=== PATIENT | male | born 1960 | race Caucasian/White ===

== ENCOUNTER 2023-03-28 07:48 | Emergency (ER) | payer BC ==
[2023-03-28] MEDS ORDERED: hydrALAZINE INJECTION 20 MG/ML VIAL IV ONE (08:15)
[2023-03-28 08:22] LABS: BASOPHILS % (AUTO) 1 % (0-10); EOSINOPHILS # (AUTO) 0.1 10^3/uL (0.0-0.3); EOSINOPHILS % (AUTO) 2 % (0-10); HEMATOCRIT 49 % (40-54); HEMOGLOBIN 16.3 g/dL (13.3-17.7); LYMPHOCYTES # (AUTO) 1.1 10^3/uL (1.0-4.0); LYMPHOCYTES % (AUTO) 21 % (12-44); MEAN CORPUSCULAR HEMOGLOBIN 31 pg (25-34); MEAN CORPUSCULAR HGB CONC 33 g/dL (32-36); MEAN CORPUSCULAR VOLUME 94 fL (80-99); MONOCYTES # (AUTO) 0.5 10^3/uL (0.0-1.0); MONOCYTES % (AUTO) 9 % (0-12); NEUTROPHILS # (AUTO) 3.3 10^3/uL (1.8-7.8); NEUTROPHILS % (AUTO) 66 % (42-75); PLATELET COUNT 202 10^3/uL (130-400)
--- NOTE | 2023-03-28 08:24 | ED Headache ---
General Chief Complaint: Dizziness/Syncope Stated Complaint: HIGH BLOOD PRESSURE | DIZZINESS Nursing Triage Note: PT AMB TO RM 5 PT CO OF DIZZINESS, HTN, N\\V STARTED ON FRIDAY. Source: patient Exam Limitations: no limitations History of Present Illness Date Seen by Provider: Mar 28, 2023 Time Seen by Provider: 08:12 Initial Comments Very pleasant 62-year-old male presents to the emergency department with symptoms of vertigo that started upon waking morning (yesterday ). He is traveling from out of town for business although this is his hometown. Stat es he woke up morning and the room was spinning he was very dizzy after he got up from bed he had an episode of vomiting that he states was triggered by the dizziness he was not nauseated. States he then stated he would not be able to make the conference that day and went back to bed. He states he started to feel better throughout the day but still had a dull headache and some mild dizziness he describes his vision jumping when he looks to one side it does not make dizziness any worse. He states he is hypertensive has been hypertensive for many many years did have 1 other episode similar to today but that was many years ago as well at that time had his medication adjusted and has not had any problems since. No cardiac disease no history of stroke. He cannot recall the name of his antihypertensive but he states he did take it today. He states he has a mild dull headache he does exhibit nystagmus when looking to the left no dizziness or nausea. He is hypertensive initially 212/129 it has come down to 195/128 without intervention heart rate 75 normal sinus rhythm. He is afebrile no chest pain no shortness of breath Timing/Duration: 24 hours, waxing and waning Severity/Quality: moderate Prior Headaches/Recent Trauma: no recent headache/trauma Associated Symptoms: nausea/vomiting, vision changes, other (Dizziness) Allergies and Home Medications Allergies Coded Allergies: No Known Drug Allergies (Unverified , 03/28/23) Patient Home Medication List Home Medication List Reviewed: Yes Review of Systems Review of Systems Constitutional: see HPI, dizziness Eyes: Blurred Vision, Vision Changes Ears, Nose, Mouth, Throat: no symptoms reported Respiratory: no symptoms reported Cardiovascular: no symptoms reported Gastrointestinal: vomiting Genitourinary: no symptoms reported Musculoskeletal: no symptoms reported Skin: no symptoms reported Psychiatric/Neurological: Headache All Other Systems Reviewed Negative Unless Noted: Yes Past Rvgezpb-Mgytdt-Bnyzah Hx Patient Social History Substance use?: No Alcohol Use?: Yes Alcohol type: Beer Alcohol Frequency: Once in a while Immunizations Up To Date Influenza Vaccine Up-to-Date: Yes; Up-to-Date Past Medical History Surgery/Hospitalization HX: HTN, SHOULDER R, ARHTROSCOPY KNEE. Physical Exam Vital Signs Vital Signs - First Documented 03/28/23 07:56 Temp 36.0 Pulse 75 Resp 16 B/P (MAP) 212/129 (156) Pulse Ox 96 Capillary Refill : Less Than 3 Seconds Height, Weight, BMI Height: '" Weight: lbs. oz. kg; BMI Method: General Appearance: WD/WN, no apparent distress HEENT: pharynx normal, other (Horizontal nystagmus with fast component to the right when looking left) Neck: non-tender, full range of motion, supple, normal inspection Cardiovascular: regular rate, rhythm, no edema Respiratory: chest non-tender, no respiratory distress Gastrointestinal: non tender, soft Back: no CVA tenderness, no vertebral tenderness Extremities: normal range of motion, non-tender Psychiatric: alert, oriented x 3 Crainal Nerves: normal hearing, normal speech, PERRL Coordination/Gait: normal gait Motor/Sensory: no motor deficit, no sensory deficit Skin: normal color, warm/dry Progress/Results/Core Measures Results/Orders Lab Results Laboratory Tests Test 03/28/23 08:03 03/28/23 08:22 03/28/23 08:55 Range/Units White Blood Count 5.0 4.3-11.0 10^3/uL Red Blood Count 5.20 4.30-5.52 10^6/uL Hemoglobin 16.3 13.3-17.7 g/dL Hematocrit 49 40-54 % Mean Corpuscular Volume 94 80-99 fL Mean Corpuscular Hemoglobin 31 25-34 pg Mean Corpuscular Hemoglobin Concent 33 32-36 g/dL Red Cell Distribution Width 12.8 10.0-14.5 % Platelet Count 202 130-400 10^3/uL Mean Platelet Volume 11.0 9.0-12.2 fL Immature Granulocyte % (Auto) 0 % Neutrophils (%) (Auto) 66 42-75 % Lymphocytes (%) (Auto) 21 12-44 % Monocytes (%) (Auto) 9 0-12 % Eosinophils (%) (Auto) 2 0-10 % Basophils (%) (Auto) 1 0-10 % Neutrophils # (Auto) 3.3 1.8-7.8 10^3/uL Lymphocytes # (Auto) 1.1 1.0-4.0 10^3/uL Monocytes # (Auto) 0.5 0.0-1.0 10^3/uL Eosinophils # (Auto) 0.1 0.0-0.3 10^3/uL Basophils # (Auto) 0.0 0.0-0.1 10^3/uL Immature Granulocyte # (Auto) 0.0 0.0-0.1 10^3/uL Sodium Level 141 135-145 MMOL/L Potassium Level 3.8 3.6-5.0 MMOL/L Chloride Level 106 98-107 MMOL/L Carbon Dioxide Level 26 21-32 MMOL/L Anion Gap 9 5-14 MMOL/L Blood Urea Nitrogen 14 7-18 MG/DL Creatinine 1.09 0.60-1.30 MG/DL Estimat Glomerular Filtration Rate 77 BUN/Creatinine Ratio 13 Glucose Level 103 70-105 MG/DL Calcium Level 9.3 8.5-10.1 MG/DL Corrected Calcium 9.0 8.5-10.1 MG/DL Total Bilirubin 0.9 0.1-1.0 MG/DL Aspartate Amino Transf (AST/SGOT) 17 5-34 U/L Alanine Aminotransferase (ALT/SGPT) 17 0-55 U/L Alkaline Phosphatase 64 40-136 U/L Total Protein 7.3 6.4-8.2 GM/DL Albumin 4.4 3.2-4.5 GM/DL Glucometer 102 70-110 MG/DL My Orders Orders - LOUISAR,CEE W DO Cbc And Automated Diff (03/28/23 08:14) Comprehensive Metabolic Panel (03/28/23 08:14) Ua Culture If Indicated (03/28/23 08:14) Chest 1 View, Ap/Pa Only (03/28/23 08:14) Ekg Tracing (03/28/23 08:14) Accucheck Stat ONCE (03/28/23 08:14) Ed Iv/Invasive Line Start (03/28/23 08:14) Vital Signs Stroke Patient Q15M (03/28/23 08:14) Ct Head Wo-R/O Stroke (03/28/23 08:14) Monitor-Rhythm Ecg Trace Only (03/28/23 08:14) Dysphagia Screening Tool Q10MX1 (03/28/23 08:14) Hydralazine Injection (Hydralazine Injec (03/28/23 08:15) Medications Given in ED Current Medications Medications Dose Ordered Sig/Sheryl Route Start Time Stop Time Status Last Admin Dose Admin Hydralazine HCl 10 mg ONCE ONCE IV 03/28/23 08:15 03/28/23 08:17 DC 03/28/23 08:27 10 MG Vital Signs/I&O 03/28/23 07:56 Temp 36.0 Pulse 75 Resp 16 B/P (MAP) 212/129 (156) Pulse Ox 96 Blood Pressure Mean: 156 Progress Progress Note : Time: 08:22 Progress Note 62-year-old with chronic hypertension presents with dull headache after an episode of acute onset of what sounds to be vertigo yesterday morning. He had 1 episode of vomiting but states that was secondary to dizziness he does not have nausea currently. He is neurologically intact. Performing NIHSS. Score is 0, states he had this happen a few years ago where he had dizziness with vomiting and a mild headache. States he was hypertensive then as well. He had gone to the emergency department at that point and underwent an MRI which was negative for any acute cerebral infarction or injury. States his physician adjusted his antihypertensives at that time again this was 2 years ago and states he has never had a problem since. Advised that since his blood pressure is still significantly elevated with a mild headache and vertiginous symptoms although I do not suspect stroke I would like to obtain a CT head as he does show symptoms of hypertensive urgency versus emergency we will also obtain blood work, EKG chest x-ray etc. patient agrees. He has a good sense of humor and is cooperative with exam and questioning his blood sugar is 102 mg/dL. Again he does have nystagmus when looking to the left suspect vertiginous etiology of symptoms. However this will be a diagnosis of exclusion. We will also provide hydralazine to bring blood pressure down while monitoring. called back and states he takes 100 mg of losartan daily. This is his only antihypertensive. Labs all normal CT negative chest x-ray negative blood pressure is trending downward after 1 dose of hydralazine. Patient remains asymptomatic we will provide him Valium as needed for severe vertigo as well as meclizine for mild to moderate vertigo while he is here. Advise follow-up with primary care will need perhaps a secondary antihypertensive to take as needed as well. Patient voices understanding and agrees. He is ambulatory, neurologically intact again NIHSS is 0. He has been asymptomatic while in the department. Will provide prescription for clonidine as well for hypertension. Advised symptoms to return to the emergency department for amount of [place]. Patient agrees with Initial ECG Rhythm: Normal Sinus Initial ECG Impression: Normal EKG : EKG Time: 08:03 Rate: 76 Rhythm: Normal Sinus Intervals: Normal Diagnostic Imaging Diagonstic Imaging: Xray (chest- nad), CT (nad) Reviewed: Discussed w/Radiologist CT Read Date: Mar 28, 2023 CT Read Time: 08:36 CT Results/Progress Notes nothing acute no change from prior Departure Impression Primary Impression: Vertigo Additional Impression: Hypertension Qualified Codes: I10 - Essential (primary) hypertension Disposition: 01 HOME, SELF-CARE Condition: Improved Departure-Patient Inst. Referrals: NO,LOCAL PHYSICIAN (PCP/Family) Primary Care Physician Patient Instructions: Vertigo (a Type of Dizziness) (DC), High Blood Pressure (DC), High blood pressure emergencies Scripts Clonidine HCl (Clonidine HCl) 0.1 Mg Tablet 0.1 MG PO BID PRN for BLOOD PRESSURE for 10 Days, #20 TAB Prov: CEE THOMPSON DO 03/28/23 Diazepam (Valium) 5 Mg Tablet 5 MG PO TID PRN for DIZZINESS for 7 Days, #21 TAB Prov: CEE THOMPSON DO 03/28/23 Meclizine HCl (Meclizine HCl) 50 Mg Tablet 50 MG PO TID PRN for DIZZINESS for 7 Days, #21 TAB Prov: CEE THOMPSON DO 03/28/23 CEE THOMPSON DO Mar 28, 2023 08:24
[2023-03-28 08:28] LABS: ALBUMIN 4.4 GM/DL (3.2-4.5); POTASSIUM 3.8 MMOL/L (3.6-5.0)
[2023-03-28 08:29] LABS: CALCIUM 9.3 MG/DL (8.5-10.1)
[2023-03-28 08:30] LABS: TOTAL PROTEIN 7.3 GM/DL (6.4-8.2)
[2023-03-28 08:32] LABS: BILIRUBIN,TOTAL 0.9 MG/DL (0.1-1.0)
[2023-03-28 08:34] LABS: CREATININE SERUM 1.09 MG/DL (0.60-1.30)
--- NOTE | 2023-03-28 08:45 | Diagnostic Imaging Report ---
EXAM: CHEST 1 VIEW, AP/PA ONLY INDICATION: Hypertension. COMPARISON: 06/05/2019. FINDINGS: Normal heart size and central pulmonary vascularity. Lungs are clear. No pleural effusion or pneumothorax. No acute osseous findings. IMPRESSION: No acute cardiopulmonary findings. Dictated by: Dictated on workstation # [id number]
--- NOTE | 2023-03-28 09:02 | Diagnostic Imaging Report ---
CLINICAL INDICATIONS: Patient with dizziness, headache, and hypertension. Patient has nausea and vomiting which started . EXAM: Axial CT scan of the brain performed without IV contrast. High-resolution axial CT brain images with sagittal and coronal reformations were also created. Auto Exposure Controls were utilized during the CT exam to meet ALARA standards for radiation dose reduction. COMPARISON: Head CT without contrast dated 06/05/2019 FINDINGS: Exam: Axial CT scan of the brain without IV contrast with coronal and sagittal reformatted images. Auto Exposure Controls were utilized during the CT exam to meet ALARA standards for radiation dose reduction. Comparison: None Findings: There is no evidence of acute cerebral infarct, intracranial hemorrhage, or gross mass effect. 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 The brain parenchymal volume appears appropriate for patient's age. There is normal ojeda-white matter distinction. There is no significant midline shift or herniation. Partial empty sella turcica is noted. There is no evidence of hydrocephalus. The basal cisterns are unremarkable. The skull, extracranial soft tissue, and orbits are unremarkable. The paranasal sinuses are unremarkable. Temporal bones show no significant abnormality. IMPRESSION: 1: Stable CT scan of the brain with no interval evidence of acute intracranial process. There is no dense vessel sign. 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 Results of this report discussed with Dr. Sobia Garcia via the telephone on 03/23/2023 at 0844 hours. Dictated by: Dictated on workstation # [id number]
[2023-03-28 09:10] LABS: AMORPHOUS SEDIMENT,UR FEW AMOR URATES /LPF; BACTERIA,URINE NEGATIVE /HPF; BILIRUBIN,URINE NEGATIVE (NEGATIVE); CLARITY,URINE CLEAR; COLOR,URINE YELLOW; GLUCOSE, URINE (UA) NEGATIVE (NEGATIVE); HYALINE CASTS, URINE 0-2 /LPF; KETONES,URINE NEGATIVE (NEGATIVE); LEUKOCYTE ESTERASE ,URINE NEGATIVE (NEGATIVE); NITRITE,URINE NEGATIVE (NEGATIVE); PH,URINE 6.5 (5-9); PROTEIN,URINE 2+ (NEGATIVE); WBC,URINE 0-2 /HPF
[2023-03-28] MEDS ORDERED: CLN.1T PO (09:13)
[2023-03-28] MEDS ORDERED: DIAZ5TAB PO (09:13)
[2023-03-28] MEDS ORDERED: MECL50TA4 PO (09:13)
[2023-03-28 09:23] VITALS: BP 175/106
== END 2023-03-28 09:27 | disposition home or self-care (01) ==
LOC: ER 07:52
DX: I10 Essential (primary) hypertension (principal); R11.10 Vomiting, unspecified; Z79.899 Other long term (current) drug therapy
CPT/HCPCS: 36415; 70450; 71045; 80053; 81000; 82947; 85025; 93005; 93041; 96374